=== PATIENT | female | born 1995 | race Caucasian/White ===

== ENCOUNTER 2021-11-26 09:06 | Day surgery (SDC) | payer OTHER ==
[2021-11-25 14:57] VITALS: BMI 26.6
[2021-11-26] MEDS ORDERED: DEXAMETHASONE SOD PHOSPHATE 10 MG/1 ML VIAL ONE (12:19)
[2021-11-26] MEDS ORDERED: ROPIVACAINE HCL/PF 100 MG/20 ML VIAL ONE (12:19)
[2021-11-26] MEDS ORDERED: MIDAZOLAM HCL 2 MG/2 ML SINGLE DOSE VIAL ONE (12:19)
[2021-11-26] MEDS ORDERED: PROPOFOL 20 ML ONE ×2 (12:53)
[2021-11-26] MEDS ORDERED: ceFAZolin SODIUM 1 GM VIAL ONE (12:55)
[2021-11-26] MEDS ORDERED: DEXAMETHASONE SOD PHOSPHATE 4 MG/1 ML VIAL ONE (13:17)
[2021-11-26] MEDS ORDERED: ONDANSETRON 4 MG/2 ML VIAL ONE ×2 (13:17→14:05)
[2021-11-26] MEDS ORDERED: oxyCODONE HCL 5 MG TABLET PO PRN (14:21)
[2021-11-26] MEDS ORDERED: ONDANSETRON 4 MG/2 ML VIAL IVPUSH PRN (14:21)
[2021-11-26] MEDS ORDERED: LACTATED RINGERS SOLUTION 1,000 ML IV SCH (14:30)
[2021-11-26] MEDS ORDERED: KETOROLAC TROMETHAMINE 30 MG/1 ML VIAL ONE (14:59)
[2021-11-26] MEDS ORDERED: KETOROLAC TROMETHAMINE 30 MG/1 ML VIAL IVPUSH ONE (15:05)
[2021-11-26] MEDS ORDERED: oxyCODONE HCL 5 MG TABLET ONE (15:15)
[2021-11-26] MEDS ORDERED: ACETAMINOPHEN 1000 MG/100 ML BAG IVPB ONE (15:29)
[2021-11-26 16:15] VITALS: TEMP 97.7
[2021-11-26 16:43] VITALS: BP 145/84; PULSE 86
== END 2021-11-26 16:40 | disposition home or self-care (01) ==
LOC: FASU 09:06
PROVIDERS: ATTEND Orthopaedic Surgery Hand Surgery
PROC: 0LN60ZZ Release Left Lower Arm and Wrist Tendon, Open Approach (ICD-10-PCS; 2021-11-26)
PROC: 0PSJ04Z Reposition Left Radius with Internal Fixation Device, Open Approach (ICD-10-PCS; principal; 2021-11-26 13:04)
DX: S52.572A Other intraarticular fracture of lower end of left radius, initial encounter for closed fracture (principal); X58.XXXA Exposure to other specified factors, initial encounter; Y93.9 Activity, unspecified; Y92.9 Unspecified place or not applicable
CPT/HCPCS: 25290; 25609; C1713; 73110-TC-LT-FY; 84703; 94760; C9803-CS; J1100; U0003; U0005